=== PATIENT | female | born 1940 | race Caucasian/White ===

== ENCOUNTER 2017-12-30 15:36 | Observation (INO) ==
[2017-12-30] MEDS ORDERED: Ondansetron 4 MG/2 ML VIAL IVP ONE ×2 (15:48→18:25)
[2017-12-30] MEDS ORDERED: 0.9 % Sodium Chloride 1,000 ML IVC SCH (16:00)
[2017-12-30 16:09] LABS: Bilirubin,Urine Negative (Negative); Blood,Urine Negative (Negative); Color,Urine Yellow (Yellow); Glucose,Urine (UA) Normal (Normal); Ketones,Urine Negative (Negative); Leukocyte Esterase,Urine Negative (Negative); Nitrite,Urine Negative (Negative); Protein,Urine Negative (Neg-Trace); Urobilinogen,Urine Normal (Normal)
--- NOTE | 2017-12-30 16:18 | Emergency Department Note ---
Disposition Clinical Impression: Dizziness, Generalized weakness Nausea and vomiting Qualifiers: Vomiting type: unspecified Vomiting Intractability: non-intractable Qualified Code(s): R11.2 - Nausea with vomiting, unspecified Disposition: Admitted As Inpatient Condition: Fair Time of Disposition: 20:06 General Adult HPI - General Chief complaint: ED General Medical Stated complaint: Multiple Complaints Time Seen by Provider: 12/30/17 15:45 Source: patient, family, EMS Mode of arrival: EMS Limitations: no limitations Nursing Notes Reviewed: Yes Vital Signs Reviewed: Yes - History of Present Illness HPI Narrative: 77-year-old female with significant past medical history of hypertension presenting to the emergency Department chief complaint of dizziness and headache. Patient states approximately 2 days ago she started having a severe headache that is now dissipated. Her current symptoms are dizziness when flexing her neck. Patient denies any syncope or head injury. Denies using anticoagulation. Daughter at bedside. Daughter is concerned since patient has lost a large amount of weight recently after patient's 's . Patient denies any chest pain, shortness of breath or fever. She does disclose one episode of stool incontinence yesterday. Has not had any urinary or stool incontinence since. Denies hematuria, melena or hematochezia. Denies any history of aneurysm, coronary artery disease. Patient denies abdominal pain. Pain Scale: 3 - Related Data Home Medications Medication Instructions Recorded Confirmed LORazepam [Ativan] 0.25 mg PO BID PRN 08/11/15 09/15/15 Ondansetron HCl [Zofran] 4 mg PO TID PRN 08/11/15 09/15/15 Sertraline [Zoloft] 100 mg PO DAILY 08/11/15 09/15/15 Previous Rx's Medication Instructions Recorded OxyCODONE/APAP 5/325 [Percocet 1 each PO Q6HR PRN #30 tablet 09/15/15 5/325 MG] Allergies Allergy/AdvReac Type Severity Reaction Status Date / Time Penicillins Allergy Severe Rash Verified 09/15/15 07:08 All systems ED: reviewed and negative except as stated. Constitutional: Denies: fever, chills Eyes: Reports: as per HPI ENT ED: Reports: as per HPI Cardiovascular: Denies: chest pain, palpitations, dyspnea on exertion Respiratory: Denies: cough, dyspnea, wheezes Gastrointestinal: Denies: abdominal pain, nausea, vomiting Genitourinary: Reports: as per HPI Musculoskeletal: Reports: as per HPI Integumentary: Reports: as per HPI Neurological: Denies: weakness, numbness, paresthesias Psychiatric: Reports: as per HPI Endocrine: Reports: as per HPI Hematological/Lymphatic: Reports: as per HPI Allergic/Immunologic: Reports: as per HPI Past Medical History - Past Medical History Attestation: Yes The following information was validated with the patient. Medical history: Reports: dementia, GERD, hypertension Surgical history: Reports: hysterectomy Psychiatric history: Reports: anxiety, depression - Social History Smoking Status: Never smoker Smokeless Tobacco Status: No Alcohol use: Reports: none Drug use: Reports: none Physical Exam - General Limitations: no limitations General appearance: cachectic, other - Head Head exam: atraumatic, normocephalic, normal inspection - Eye Eye exam: Present: normal appearance. Absent: scleral icterus, conjunctival injection - ENT ENT exam: mucous membranes dry - Neck Neck exam: Present: normal inspection, full ROM. Absent: tenderness, meningismus - Chest Chest inspection: Present: normal inspection, symmetric chest wall rise. Absent : tenderness, rash - Respiratory Respiratory exam: Present: normal lung sounds bilaterally. Absent: respiratory distress, wheezes - Cardiovascular Cardiovascular exam: Present: regular rate, normal rhythm - Abdominal Exam Abdominal exam: Present: soft, Non-Tender. Absent: distention, guarding, rebound - Extremities Exam Extremities exam: Present: normal inspection. Absent: tenderness - Neurological Exam Neurological exam: Present: alert, oriented X3 - Psychiatric Psychiatric exam: Present: flat affect - Skin Skin exam: Present: warm, intact Course Course Narrative: 77-year-old female presenting to the emergency Department chief complaint of dizziness and headache. Patient is alert and oriented 3 in the room. Hypertensive but otherwise vital signs within normal limits and stable. We will obtain basic laboratory analysis along with CT of the head. We will also obtain a CTA of the head and neck. Disposition most likely admission but pending results. Patient agrees with this plan. - Reevaluation(s) Reevaluation #1: Patient's laboratory analysis benign. CTA of the head, neck along with CT of the head and CT of abdomen and pelvis within normal limits. The patient came back from CT a she felt some pressure in her chest and felt nauseous. Patient was given Benadryl and Zofran along with a liter of fluids. Due to patient's continued dizziness we will plan to admit the patient at this time for further evaluation. Daughter at bedside states she is concerned about bringing the patient home because she will soon be at home alone when her son goes back to school. I spoke to the hospitalist on-call Dr. Martinez who agrees to accept the patient at this time. Patient is alert and oriented 3 in the room with stable vital signs. Vital Signs Temperature 98.2 F 12/30/17 15:38 Pulse Rate 69 12/30/17 15:38 Respiratory Rate 16 12/30/17 15:38 Blood Pressure 187/102 12/30/17 15:38 O2 Sat by Pulse Oximetry 96 12/30/17 15:38 Temperature 98.2 F 12/30/17 15:38 Pulse Rate 74 12/30/17 19:33 Respiratory Rate 16 12/30/17 20:04 Blood Pressure 153/84 12/30/17 20:04 O2 Sat by Pulse Oximetry 94 12/30/17 19:33 Oxygen Delivery Oxygen Delivery Room Air Medical Decision Making - Lab Data Result diagrams: 12/30/17 16:02 12/30/17 16:02 Lab Results 12/30/17 12/30/17 12/30/17 Range/Units 15:42 15:51 16:02 WBC (4.3-11.1) K/mcL RBC (3.82-4.97) M/mcL Hgb (11.5-15.4) g/dL Hct (35.3-44.9) % MCV (83.0-100.0) fL MCH (28.0-33.3) pg MCHC (31.6-35.5) g/dL RDW (11.5-14.5) % Plt Count (140-400) K/mcL MPV (9.4-12.4) fL Immature Gran % (0-4) % Seg Neutrophils % % Lymphocytes % % Monocytes % % Eosinophils % % Basophils % % Neutrophils # (1.6-8.9) K/mcL Lymphocytes # (0.6-4.6) K/mcL Monocytes # (0.0-1.3) K/mcL Eosinophils # (0.0-0.6) K/mcL Basophils # (0.0-0.2) K/mcL PT 11.8 (9.4-12.1) Seconds INR 1.0 APTT 27.3 (26.0-36.0) Seconds Sodium (136-145) mEq/L Potassium (3.5-5.1) mEq/L Chloride (98-107) mEq/L Carbon Dioxide (23-29) mEq/L BUN (8-23) mg/dL Creatinine (0.60-1.20) mg/dL Est GFR ( Amer) (> 60) Est GFR (Non-Af Amer) (> 60) BUN/Creatinine Ratio (6-26) Glucose (70-105) mg/dL POC Glucose 110 H (70-99) mg/dL Calculated Osmolality (280-300) Lactic Acid (0.5-2.2) mmol/L Calcium (8.6-10.3) mg/dL Phosphorus (2.7-4.5) mg/dL Magnesium (1.6-2.6) mg/dL Total Bilirubin (0.3-1.0) mg/dL AST (13-39) Units/L ALT (7-52) Units/L Alkaline Phosphatase (34-104) Units/L Troponin I (< 0.04) ng/mL Serum Total Protein (6.4-8.9) g/dL Albumin (3.5-5.7) g/dL Globulin (2.4-3.5) g/dL Albumin/Globulin Ratio (1.1-2.2) TSH (0.340-5.600) mcIU/mL Urine Color Yellow (Yellow) Urine Clarity Clear (Clear) Urine pH 7.0 (5.0-8.0) pH Units Ur Specific [place] 1.020 (1.010-1.025) Urine Protein Negative (Neg-Trace) mg/dL Urine Glucose (UA) Normal (Normal) mg/dL Urine Ketones Negative (Negative) mg/dL Urine Blood Negative (Negative) Urine Nitrite Negative (Negative) Urine Bilirubin Negative (Negative) Urine Urobilinogen Normal (Normal) mg/dL Ur Leukocyte Esterase Negative (Negative) Ur Culture Indicated? NO (NO) 12/30/17 12/30/17 12/30/17 Range/Units 16:02 16:02 16:40 WBC 5.8 (4.3-11.1) K/mcL RBC 4.47 (3.82-4.97) M/mcL Hgb 12.9 (11.5-15.4) g/dL Hct 38.6 (35.3-44.9) % MCV 86.4 (83.0-100.0) fL MCH 28.9 (28.0-33.3) pg MCHC 33.4 (31.6-35.5) g/dL RDW 13.2 (11.5-14.5) % Plt Count 144 (140-400) K/mcL MPV 10.7 (9.4-12.4) fL Immature Gran % 0.5 (0-4) % Seg Neutrophils % 81.7 % Lymphocytes % 13.4 % Monocytes % 3.8 % Eosinophils % 0.3 % Basophils % 0.3 % Neutrophils # 4.8 (1.6-8.9) K/mcL Lymphocytes # 0.8 (0.6-4.6) K/mcL Monocytes # 0.2 (0.0-1.3) K/mcL Eosinophils # 0.0 (0.0-0.6) K/mcL Basophils # 0.0 (0.0-0.2) K/mcL PT (9.4-12.1) Seconds INR APTT (26.0-36.0) Seconds Sodium 136 (136-145) mEq/L Potassium 3.5 (3.5-5.1) mEq/L Chloride 109 H (98-107) mEq/L Carbon Dioxide 25 (23-29) mEq/L BUN 11 (8-23) mg/dL Creatinine 0.73 (0.60-1.20) mg/dL Est GFR ( Amer) > 60 (> 60) Est GFR (Non-Af Amer) > 60 (> 60) BUN/Creatinine Ratio 15 (6-26) Glucose 113 H (70-105) mg/dL POC Glucose (70-99) mg/dL Calculated Osmolality 282 (280-300) Lactic Acid 0.7 (0.5-2.2) mmol/L Calcium 9.2 (8.6-10.3) mg/dL Phosphorus 3.4 (2.7-4.5) mg/dL Magnesium 2.1 (1.6-2.6) mg/dL Total Bilirubin 0.7 (0.3-1.0) mg/dL AST 15 (13-39) Units/L ALT 7 (7-52) Units/L Alkaline Phosphatase 71 (34-104) Units/L Troponin I < 0.03 (< 0.04) ng/mL Serum Total Protein 6.6 (6.4-8.9) g/dL Albumin 4.1 (3.5-5.7) g/dL Globulin 2.5 (2.4-3.5) g/dL Albumin/Globulin Ratio 1.6 (1.1-2.2) TSH 1.295 (0.340-5.600) mcIU/mL Urine Color (Yellow) Urine Clarity (Clear) Urine pH (5.0-8.0) pH Units Ur Specific [place] (1.010-1.025) Urine Protein (Neg-Trace) mg/dL Urine Glucose (UA) (Normal) mg/dL Urine Ketones (Negative) mg/dL Urine Blood (Negative) Urine Nitrite (Negative) Urine Bilirubin (Negative) Urine Urobilinogen (Normal) mg/dL Ur Leukocyte Esterase (Negative) Ur Culture Indicated? (NO) - EKG Data EKG #1 EKG attestation: Yes I reviewed and interpreted this EKG. EKG results narrative: Sinus rhythm. 60 bpm. AK interval 177, QRS 102, QTc 43. No signs of acute ST segment elevation or ischemia. Compared to previous EKG completed on08/11/2015 with no significant changes. EKG #2 EKG attestation: Yes I reviewed and interpreted this EKG. EKG results narrative: Sinus rhythm with PVCs. 68 bpm. Left axis deviation. AK interval 177, QRS of 91, QTC 414. No signs of acute ST segment elevation or ischemia. Attestation Statement - Attestation Attestation: I, Braeden Ramirez DO, examined this patient [id number] and my medical decision-making was reviewed with (Dr. Letty Garrido, Resident Physician. I agree with the documented findings, disposition and treatment plan as described except to the extent set forth below. Please see my progress notes for details.
[2017-12-30 16:19] LABS: Clarity,Urine Clear (Clear)
--- NOTE | 2017-12-30 16:23 | Emergency Department Note ---
Disposition Clinical Impression: Nausea and vomiting, Dizziness, Generalized weakness Disposition: Admitted As Inpatient Condition: Fair Referrals: Yessi Jordan MD [Primary Care Provider] - Forms: ED Satisfaction Letter, Work/School Release Time of Disposition: 19:44 General Adult HPI - General Chief complaint: ED General Medical Stated complaint: Multiple Complaints Time Seen by Provider: 12/30/17 15:45 Source: patient, family, EMS Mode of arrival: EMS Limitations: no limitations - History of Present Illness Pain Scale: 3 - Related Data Home Medications Medication Instructions Recorded Confirmed LORazepam [Ativan] 0.25 mg PO BID PRN 08/11/15 09/15/15 Ondansetron HCl [Zofran] 4 mg PO TID PRN 08/11/15 09/15/15 Sertraline [Zoloft] 100 mg PO DAILY 08/11/15 09/15/15 Previous Rx's Medication Instructions Recorded OxyCODONE/APAP 5/325 [Percocet 1 each PO Q6HR PRN #30 tablet 09/15/15 5/325 MG] Allergies Allergy/AdvReac Type Severity Reaction Status Date / Time Penicillins Allergy Severe Rash Verified 09/15/15 07:08 Past Medical History - Past Medical History Medical history: Reports: dementia, GERD, hypertension Surgical history: Reports: hysterectomy Psychiatric history: Reports: anxiety, depression - Social History Smoking Status: Never smoker Smokeless Tobacco Status: No Alcohol use: Reports: none Drug use: Reports: none Physical Exam - General Limitations: no limitations General appearance: other Course Vital Signs Temperature 98.2 F 12/30/17 15:38 Pulse Rate 69 12/30/17 15:38 Respiratory Rate 16 12/30/17 15:38 Blood Pressure 187/102 12/30/17 15:38 O2 Sat by Pulse Oximetry 96 12/30/17 15:38 Temperature 98.2 F 12/30/17 15:38 Pulse Rate 74 12/30/17 19:33 Respiratory Rate 16 12/30/17 19:33 Blood Pressure 162/87 12/30/17 19:33 O2 Sat by Pulse Oximetry 94 12/30/17 19:33 Oxygen Delivery Oxygen Delivery Room Air Medical Decision Making - Lab Data Result diagrams: 12/30/17 16:02 12/30/17 16:02 Lab Results 12/30/17 12/30/17 12/30/17 Range/Units 15:51 16:02 16:02 WBC 5.8 (4.3-11.1) K/mcL RBC 4.47 (3.82-4.97) M/mcL Hgb 12.9 (11.5-15.4) g/dL Hct 38.6 (35.3-44.9) % MCV 86.4 (83.0-100.0) fL MCH 28.9 (28.0-33.3) pg MCHC 33.4 (31.6-35.5) g/dL RDW 13.2 (11.5-14.5) % Plt Count 144 (140-400) K/mcL MPV 10.7 (9.4-12.4) fL Immature Gran % 0.5 (0-4) % Seg Neutrophils % 81.7 % Lymphocytes % 13.4 % Monocytes % 3.8 % Eosinophils % 0.3 % Basophils % 0.3 % Neutrophils # 4.8 (1.6-8.9) K/mcL Lymphocytes # 0.8 (0.6-4.6) K/mcL Monocytes # 0.2 (0.0-1.3) K/mcL Eosinophils # 0.0 (0.0-0.6) K/mcL Basophils # 0.0 (0.0-0.2) K/mcL PT 11.8 (9.4-12.1) Seconds INR 1.0 APTT 27.3 (26.0-36.0) Seconds Sodium (136-145) mEq/L Potassium (3.5-5.1) mEq/L Chloride (98-107) mEq/L Carbon Dioxide (23-29) mEq/L BUN (8-23) mg/dL Creatinine (0.60-1.20) mg/dL Est GFR ( Amer) (> 60) Est GFR (Non-Af Amer) (> 60) BUN/Creatinine Ratio (6-26) Glucose (70-105) mg/dL Calculated Osmolality (280-300) Lactic Acid (0.5-2.2) mmol/L Calcium (8.6-10.3) mg/dL Phosphorus (2.7-4.5) mg/dL Magnesium (1.6-2.6) mg/dL Total Bilirubin (0.3-1.0) mg/dL AST (13-39) Units/L ALT (7-52) Units/L Alkaline Phosphatase (34-104) Units/L Troponin I (< 0.04) ng/mL Serum Total Protein (6.4-8.9) g/dL Albumin (3.5-5.7) g/dL Globulin (2.4-3.5) g/dL Albumin/Globulin Ratio (1.1-2.2) TSH (0.340-5.600) mcIU/mL Urine Color Yellow (Yellow) Urine Clarity Clear (Clear) Urine pH 7.0 (5.0-8.0) pH Units Ur Specific [place] 1.020 (1.010-1.025) Urine Protein Negative (Neg-Trace) mg/dL Urine Glucose (UA) Normal (Normal) mg/dL Urine Ketones Negative (Negative) mg/dL Urine Blood Negative (Negative) Urine Nitrite Negative (Negative) Urine Bilirubin Negative (Negative) Urine Urobilinogen Normal (Normal) mg/dL Ur Leukocyte Esterase Negative (Negative) Ur Culture Indicated? NO (NO) 12/30/17 12/30/17 Range/Units 16:02 16:40 WBC (4.3-11.1) K/mcL RBC (3.82-4.97) M/mcL Hgb (11.5-15.4) g/dL Hct (35.3-44.9) % MCV (83.0-100.0) fL MCH (28.0-33.3) pg MCHC (31.6-35.5) g/dL RDW (11.5-14.5) % Plt Count (140-400) K/mcL MPV (9.4-12.4) fL Immature Gran % (0-4) % Seg Neutrophils % % Lymphocytes % % Monocytes % % Eosinophils % % Basophils % % Neutrophils # (1.6-8.9) K/mcL Lymphocytes # (0.6-4.6) K/mcL Monocytes # (0.0-1.3) K/mcL Eosinophils # (0.0-0.6) K/mcL Basophils # (0.0-0.2) K/mcL PT (9.4-12.1) Seconds INR APTT (26.0-36.0) Seconds Sodium 136 (136-145) mEq/L Potassium 3.5 (3.5-5.1) mEq/L Chloride 109 H (98-107) mEq/L Carbon Dioxide 25 (23-29) mEq/L BUN 11 (8-23) mg/dL Creatinine 0.73 (0.60-1.20) mg/dL Est GFR ( Amer) > 60 (> 60) Est GFR (Non-Af Amer) > 60 (> 60) BUN/Creatinine Ratio 15 (6-26) Glucose 113 H (70-105) mg/dL Calculated Osmolality 282 (280-300) Lactic Acid 0.7 (0.5-2.2) mmol/L Calcium 9.2 (8.6-10.3) mg/dL Phosphorus 3.4 (2.7-4.5) mg/dL Magnesium 2.1 (1.6-2.6) mg/dL Total Bilirubin 0.7 (0.3-1.0) mg/dL AST 15 (13-39) Units/L ALT 7 (7-52) Units/L Alkaline Phosphatase 71 (34-104) Units/L Troponin I < 0.03 (< 0.04) ng/mL Serum Total Protein 6.6 (6.4-8.9) g/dL Albumin 4.1 (3.5-5.7) g/dL Globulin 2.5 (2.4-3.5) g/dL Albumin/Globulin Ratio 1.6 (1.1-2.2) TSH 1.295 (0.340-5.600) mcIU/mL Urine Color (Yellow) Urine Clarity (Clear) Urine pH (5.0-8.0) pH Units Ur Specific [place] (1.010-1.025) Urine Protein (Neg-Trace) mg/dL Urine Glucose (UA) (Normal) mg/dL Urine Ketones (Negative) mg/dL Urine Blood (Negative) Urine Nitrite (Negative) Urine Bilirubin (Negative) Urine Urobilinogen (Normal) mg/dL Ur Leukocyte Esterase (Negative) Ur Culture Indicated? (NO) Attestation Statement - Attestation Attestation: I, Braeden Ramirez DO, examined this patient [id number] and my medical decision-making was reviewed with Dr. Letty Garrido Resident Physician. I agree with the documented findings, disposition and treatment plan as described except to the extent set forth below. Please see my progress notes for details. 77-year-old female presents to the emergency room for evaluation of a severe headache as well as nausea and vomiting. Patient presents here to the emergency room in the care of family by EMS for these symptoms. Proximal a 48+ hours ago the patient was having a complaint of a severe headache. She does live with the family is being treated for slow onset dementia. Patient's family denies any trauma or injuries. Denies any medications or changes in medication. Denies any fevers or chills chest pain shortness of breath vision changes or diarrhea. Main complaints and issues of concern here today with a headache and the intermittent nausea and vomiting. On presentation EMS transportation without any issues. Patient's vital signs are stable. Accu- Chek was normal. Blood pressure is slightly elevated but not immediately concerning. Head is atraumatic pupils are equal round reactive extracted muscles are intact she has no lateralizing nystagmus or fatigable nystagmus on exam. She has no dizziness while she acute her head still or with lateral movement of the eyes. She does have dizziness when she flexes her head forward. She has no audible carotid bruits. Oral mucosa is patent trachea is midline. Lungs are clear to auscultation heart is regular. Abdomen is soft nontender nondistended with no guarding no rigidity and no peritoneal symptoms of this time. Extremities appear to be stable. Patient has equal and symmetrical strength in the upper and lower extremities. NIH stroke scale appears to be 0 at this time with no visible signs of facial asymmetry. Cranial nerves III through XII are grossly intact. Patient has no cerebellar function deficits at this point. She has had a history of similar issues multiple years ago that required her to have CT imaging of the head and was determined to be vertigo but this appears to be different symptoms here today. Patient will have stroke evaluation completed CT imaging the head along with electrolytes and labs EKG troponin CBC chemistry chest x-ray CT of the abdomen because of uncontrolled bowel movement yesterday as well as fluid hydration electrolytes. Patient does not meet any acute criteria for stroke evaluation at this point. She said greater than 48 hours of the symptoms. The dizziness is been present since yesterday accounting for greater than 24 hours of the dizziness. She has had no progression or change in the symptoms since then. The daughter is just concerned and brought in the emergency room for evaluation. Patient will require admission once workup is completed. See detailed documentation the physical exam, medical intervention, medical decision -making and disposition in the resident physician's note. No critical care pad the patient's treatment course at this time. 1735 Kidney function is normal this time. CT angiography of the head and neck was ordered on his while to rule out any vascular insufficiency. Plain CT of the head as well as CT the abdomen have been completed but the imaging has not been reviewed. [address] angiography of the head and neck is unremarkable this time. The CT of the head that was plain film imaging as well as CT the abdomen did not show any acute etiology. Patient has had intermittent nausea while here. The dizziness symptoms have been present when she leans her head forward. Angiography is resulted and is negative for acute dissection bleed or vascular insufficiency this time. She will be admitted for dizziness symptomatically control and continued evaluation. Patient otherwise clinically stable. Patient and negative CT angiography the hospitalist Dr. Edgar reviewed the case. Description of the patient's persistent dizziness as well as nausea and emesis causing her inability to take care of herself at home were discussed and reviewed. Admission process will be completed for evaluation determination of source to the dizziness. Patient is stable will be admitted at this time. Family informed and comfortable with the plan
[2017-12-30 16:27] LABS: Basophils % 0.3 %; Eosinophils % 0.3 %; Hematocrit 38.6 % (35.3-44.9); Hemoglobin 12.9 g/dL (11.5-15.4); Immature Granulocytes % 0.5 % (0-4); Lymphocytes # 0.8 K/mcL (0.6-4.6); Lymphocytes % 13.4 %; Mean Corpuscular HGB Conc 33.4 g/dL (31.6-35.5); Mean Corpuscular Hemoglobin 28.9 pg (28.0-33.3); Mean Corpuscular Volume 86.4 fL (83.0-100.0); Mean Platelet Volume 10.7 fL (9.4-12.4); Monocytes # 0.2 K/mcL (0.0-1.3); Monocytes % 3.8 %; Neutrophils # 4.8 K/mcL (1.6-8.9); Platelet Count 144 K/mcL (140-400); Red Blood Count 4.47 M/mcL (3.82-4.97); Red Cell Distribution Width 13.2 % (11.5-14.5); Segmented Neutrophils % 81.7 %
[2017-12-30 16:42] LABS: Prothrombin Time 11.8 Seconds (9.4-12.1)
[2017-12-30 16:44] LABS: Activated Partial Thrombo Time 27.3 Seconds (26.0-36.0)
[2017-12-30 16:57] LABS: Alanine Aminotransferase 7 Units/L (7-52); Albumin 4.1 g/dL (3.5-5.7); Albumin/Globulin Ratio 1.6 (1.1-2.2); Alkaline Phosphatase 71 Units/L (34-104); Aspartate Amino Transferase 15 Units/L (13-39); BUN/Creatinine Ratio 15 (6-26); Bilirubin,Total 0.7 mg/dL (0.3-1.0); Blood Urea Nitrogen 11 mg/dL (8-23); Calcium 9.2 mg/dL (8.6-10.3); Carbon Dioxide 25 mEq/L (23-29); Chloride 109 mEq/L (98-107); Globulin 2.5 g/dL (2.4-3.5); Glucose 113 mg/dL (70-105); Magnesium 2.1 mg/dL (1.6-2.6); Osmolality,Calculated 282 (280-300); Phosphorous 3.4 mg/dL (2.7-4.5); Potassium 3.5 mEq/L (3.5-5.1); Sodium 136 mEq/L (136-145); Total Protein 6.6 g/dL (6.4-8.9); Troponin I < 0.03 ng/mL (< 0.04); eGFR For Non-African Americans > 60 (> 60)
[2017-12-30 17:11] LABS: Thyroid Stimulating Hormone 1.295 mcIU/mL (0.340-5.600)
[2017-12-30] MEDS ORDERED: Isovue-370 500 ML INFUS..BTL IV ONE (17:49)
[2017-12-30] MEDS ORDERED: 0.9 % Sodium Chloride 1,000 ML IVC ONE (18:37)
[2017-12-30] MEDS ORDERED: Naloxone 0.4 MG/ML INJ IVP PRN (19:53)
[2017-12-30] MEDS ORDERED: Ondansetron 4 MG/2 ML VIAL IVP PRN (19:57)
[2017-12-30] MEDS ORDERED: Acetaminophen 325 MG TABLET PO PRN (20:06)
[2017-12-30] MEDS ORDERED: hydrALAZINE 25 MG TABLET PO PRN (20:53)
--- NOTE | 2017-12-30 21:01 | Internal Med History&Physical ---
Date of Encounter: 12/30/17 Time of Encounter: 20:30 Internal Medicine - H&P: HPI Chief complaint: Dizziness getting worse in the last 2 days History of present illness: Ms. Stevenson is a 77 year old female with pmh hypertension, GERD, depression, dementia presenting with complaints of dizziness of about 2 months duration getting acutely worse in the last 2 days. Patient notes that she has been feeling progressively weaker recently for approximately about 2 months; she noted she hasn't been eating or drinking well since she lost her some months ago and has been feeling depressed. In the last 2 days, she notes that any time she rises up from a seated position, she feels light headed and has to hold on to something in order not to fall. She also complains of intermittent headaches. She also complains of a loss of appetite preceding these symptoms. She has had nausea and occasional vomiting, but denies any diarrhea. She denies fevers, chills, cough, abdominal pain or any other acute symptoms. In the ER, head CT, head CTA and chest CT were negative for any acute findings. she was given IV fluids and admitted for further management Past Med Surg Social Fam HX - Past Medical History Medical history: dementia, GERD, hypertension Additional medical history: cholelithiasis Psychiatric history: anxiety, depression - Past Surgical History Surgical History: cholecystectomy, hysterectomy Additional surgical history: Hemorrhoids. total hysterectomy. hemorrhoidectomy. egd/colonoscopy - Social History Smoking Status: Never smoker Smokeless Tobacco Status: No Alcohol use: none Drug use: none - Family History Mother Living Status: Hx Family Cardiac Disorders: Yes (enlarged heart, stroke) Internal Medicine - H&P: Meds LORazepam [Ativan] 0.25 mg PO BID PRN 08/11/15 [History] Ondansetron HCl [Zofran] 4 mg PO TID PRN 08/11/15 [History] Sertraline [Zoloft] 100 mg PO DAILY 08/11/15 [History] OxyCODONE/APAP 5/325 [Percocet 5/325 MG] 1 each PO Q6HR PRN #30 tablet 09/15/15 [Rx] 3 Allergy/AdvReac Type Severity Reaction Status Date / Time Penicillins Allergy Severe Rash Verified 09/15/15 07:08 All Systems PM: A 10-system review of systems was performed and is negative for pertinent findings except as documented above in the HPI. - Constitutional Constitutional: fatigue, falls, weakness - EENT Eyes: no change in vision, no discharge, no pain, no photophobia Ears: no ear discharge, no ear pain, no tinnitus Nose, mouth and throat: no dysphagia, no nasal discharge, no neck pain, no sore throat - Cardiovascular Cardiovascular ROS IM: no chest pain, no diaphoresis, no dyspnea, no lightheadedness, no palpitations, no syncope - Respiratory Respiratory: no cough, no dyspnea, no wheezing, no excessive phlegm production - Gastrointestinal Gastrointestinal: nausea, no abdominal pain, no diarrhea, no hematemesis, no hematochezia, no melena, no vomiting - Genitourinary Genitourinary: no change in urinary stream, no dysuria, no flank pain, no hematuria - Musculoskeletal Musculoskeletal ROS IM: no numbness, no tingling - Integumentary Integumentary IM: no rash, no unusual bruising - Neurological Neurological ROS: no confusion, no convulsions, no focal weakness, no numbness, no tingling, no tremor(s) - Hematologic/Lymphatic Hematologic/Lymphatic: no easy bruising - Constitutional Vitals: Temp Pulse Resp BP Pulse Ox 98.2 F 65 14 158/83 97 12/30/17 20:50 12/30/17 20:50 12/30/17 20:50 12/30/17 20:50 12/30/17 20:50 Exam: Cachectic elderly female - Head Head exam: Present: atraumatic, normocephalic - Eye Eye exam: Present: PERRL, conjuntiva pink, sclera anicteric Pupils: Present: PERRL - Neck Neck exam general surgery: Present: supple, trachea midline. Absent: lymphadenopathy - Respiratory Respiratory exam: Present: CTAB. Absent: accessory muscle use, rales, rhonchi, wheezes - Cardiovascular Cardiovascular exam: Present: RRR, +S1, +S2. Absent: diastolic murmur, gallop, rubs, systolic murmur - GI/Abdominal GI/Abdominal exam: Present: normal bowel sounds, soft, no peritoneal signs. Absent: distended, tenderness - Extremities Exam Extremities exam: Present: warm, radial pulses palpable and symmetrical. Absent : calf tenderness, cyanotic, pedal edema - Neurological Exam Neurological exam: Present: CN II-XII intact, oriented X3, no focal deficits. Absent: pronater drift, facial droop, speech deficit - Skin Skin exam: Present: dry, intact Internal Med - H&P Results - Labs CBC & Chem 7: 12/30/17 16:02 12/30/17 16:02 - Assessment and plan (1) Dehydration Current Visit: No Status: Acute Assessment and plan: Patient has had a poor appetitie, has mild dementia and depression. Will give IV fluids, cardiac diet, boost with meals. Physical therapy consulted. CT and CTA head and neck negative for any acute findings (2) Pre-syncope Current Visit: Yes Status: Acute Assessment and plan: See #1. IV fluids (3) Generalized weakness Current Visit: Yes Status: Acute Assessment and plan: Will obtain physical therapy (4) Nausea and vomiting Current Visit: Yes Status: Acute Assessment and plan: Zofran PRN Qualifiers: Vomiting type: unspecified Vomiting Intractability: non-intractable Qualified Code(s): R11.2 - Nausea with vomiting, unspecified (5) DVT prophylaxis Current Visit: No Status: Acute Assessment and plan: Heparin sc (6) Depression Current Visit: Yes Status: Acute Assessment and plan: Continue sertraline Qualifiers: Qualified Code(s): F32.9 - Major depressive disorder, single episode, unspecified (7) Hypertension Current Visit: Yes Status: Acute Assessment and plan: Hydralazine PRN Qualifiers: Qualified Code(s): I10 - Essential (primary) hypertension - Time Spent With Patient Total time spent is greater than 50% in coordination of care (as documented) at patient's floor/unit and/or counseling patient:
[2017-12-30] MEDS: 0.9 % Sodium Chloride 1,000 ML IVC SCH (21:26)
[2017-12-31 05:18] LABS: Basophils % 0.3 %; Eosinophils # 0.1 K/mcL (0.0-0.6); Eosinophils % 2.1 %; Hematocrit 35.2 % (35.3-44.9); Hemoglobin 11.7 g/dL (11.5-15.4); Immature Granulocytes % 0.3 % (0-4); Lymphocytes # 1.8 K/mcL (0.6-4.6); Lymphocytes % 27.2 %; Mean Corpuscular HGB Conc 33.2 g/dL (31.6-35.5); Mean Corpuscular Hemoglobin 28.9 pg (28.0-33.3); Mean Corpuscular Volume 86.9 fL (83.0-100.0); Mean Platelet Volume 10.8 fL (9.4-12.4); Monocytes # 0.4 K/mcL (0.0-1.3); Monocytes % 6.1 %; Neutrophils # 4.2 K/mcL (1.6-8.9); Platelet Count 121 K/mcL (140-400); Red Blood Count 4.05 M/mcL (3.82-4.97); Red Cell Distribution Width 13.2 % (11.5-14.5)
[2017-12-31] MEDS: 0.9 % Sodium Chloride 1,000 ML IVC SCH (05:44)
[2017-12-31 05:46] LABS: BUN/Creatinine Ratio 15 (6-26); Blood Urea Nitrogen 9 mg/dL (8-23); Calcium 8.4 mg/dL (8.6-10.3); Carbon Dioxide 23 mEq/L (23-29); Chloride 110 mEq/L (98-107); Glucose 91 mg/dL (70-105); Osmolality,Calculated 286 (280-300); Phosphorous 2.8 mg/dL (2.7-4.5); Potassium 3.3 mEq/L (3.5-5.1); Sodium 139 mEq/L (136-145); eGFR For Non-African Americans > 60 (> 60)
--- NOTE | 2017-12-31 09:25 | Electrocardiograph Report ---
[place] [id number] Test Date: 2017-12-30 Pat Name: Candice Stevenson Department: 103 Room: 3B21 Gender: F [employer] Maker: : 1940 Requested By: Braeden Ramirez Order Number: [id number] Reading MD: Nasim Rubio Measurements Intervals [place] Rate: 68 P: 3 SD: 177 QRS: -15 QRSD: 102 T: 67 QT: 386 QTc: 403 Interpretive Statements SINUS RHYTHM NONSPECIFIC T-WAVE ABNORMALITY Electronically Signed On 12-31-2017 9:23:32 EDT by Nasim Rubio
--- NOTE | 2017-12-31 09:27 | Electrocardiograph Report ---
[place] [id number] Test Date: 2017-12-30 Pat Name: Candice Stevenson Department: 103 Room: 3B21 Gender: F Food Service: : 1940 Requested By: Letty Garrido Order Number: [id number] Reading MD: Nasim Rubio Measurements Intervals [place] Rate: 68 P: -1 TN: 177 QRS: -24 QRSD: 91 T: 72 QT: 397 QTc: 414 Interpretive Statements SINUS RHYTHM WITH OCCASIONAL SUPRAVENTRICULAR PREMATURE COMPLEXES BORDERLINE LEFT AXIS DEVIATION NONSPECIFIC T-WAVE ABNORMALITY Electronically Signed On 12-31-2017 9:26:24 EDT by Nasim Rubio
--- NOTE | 2017-12-31 12:07 | Discharge Summary ---
- NOTES TO OUTPATIENT PROVIDER Notes to Outpatient Provider: Recommend routine hospital follow-up Date of Encounter: 12/31/17 Time of Encounter: 12:08 - Discharge Diagnosis (1) Dehydration Priority: Primary Status: Acute (2) Nausea and vomiting Priority: Primary Status: Acute Qualifiers: Vomiting type: unspecified Vomiting Intractability: non-intractable Qualified Code(s): R11.2 - Nausea with vomiting, unspecified (3) Generalized weakness Priority: Primary Status: Acute (4) Pre-syncope Priority: Primary Status: Acute (5) Depression Priority: Primary Status: Acute Qualifiers: Qualified Code(s): F32.9 - Major depressive disorder, single episode, unspecified (6) Hypertension Priority: Primary Status: Acute Qualifiers: Qualified Code(s): I10 - Essential (primary) hypertension Hospital course: Ms. Stevenson is a 77 year old female with pmh hypertension, GERD, depression, dementia presented to [facility] on 12/30/17 with complaints of dizziness for the last 2 months getting acutely worse in the last 2 days. She was placed in observation status for further work-up and treatment. Per chart review, patient had not been eating or drinking well since she lost her a few months ago and family had noted increased depressed sx's since that time. She was found to be dehydrated and hypertensive on arrival. Regarding her hypertension she was started on hydralazine with improvement and BP; given her advanced age and multiple comorbidities hydralazine was stopped and she was started on amlodipine at discharge. Patient's daughter is an RN and is able to monitor her blood pressure at home. Patient had no recurrence of nausea or vomiting and was tolerating regular diet at discharge. She is seen and examined at bedside with daughter and son at bedside as well who both reported patient appeared to be improved and back to baseline. Orthostatic blood pressures were done that did not show any evidence of orthostatic hypotension. Patient's symptoms improved with supportive care, IV fluids and treating BP. She returned to baseline and was discharged home in stable condition with outpatient follow-up. Discharge discussed with: patient (Seen and examined at bedside. Patient is new to me, information obtained from chart review and patient report. Patient has history of dementia and is a poor historian but she is alert and oriented to self place. She is able to have a conversation and answers questions properly. Says she feels better would like to go home today.), family - Time Spent with Patient Total time spent providing and/or coordinating discharge services: - Discharge Medications Prescriptions: amLODIPine [Norvasc] 5 mg PO DAILY #30 tablet Home Medications: Sertraline [Zoloft] 100 mg PO DAILY 08/11/15 [History] amLODIPine [Norvasc] 5 mg PO DAILY #30 tablet 12/31/17 [Rx] Allergies/Adverse Reactions: 3 Allergy/AdvReac Type Severity Reaction Status Date / Time Penicillins Allergy Severe Rash Verified 09/15/15 07:08 Date of admission: 12/30/17 19:51 Primary care physician: Yessi Jordan MD Consults: 12/30/17 20:00 Consult to Physical Therapy [CONS] Routine Comment: Evaluate, develop and implement POC Reason for Consult: weakness, dizziness Does patient have active BEDREST order?: No Is patient medically & hemodynamically stable?: No Patient assessed for mobility or mobilized this visit?: No 12/30/17 20:04 Consult to Core Baker [CONS] Routine Reason for SW Consult: failure to thrive, possible placement Discharging clinician: Laney Nguyen Anticipated date of discharge: 12/31/17 - Constitutional Vitals: Temp Pulse Resp BP Pulse Ox 98.1 F 65 14 120/73 98 12/31/17 06:51 12/31/17 06:51 12/31/17 06:51 12/31/17 06:51 12/31/17 06:51 General appearance: Present: A&O X 2, pleasant, no acute distress - Head Head exam: Present: atraumatic, normocephalic - Eye Eye exam: Present: PERRL, conjuntiva pink, sclera anicteric Pupils: Present: PERRL - Neck Neck exam general surgery: Present: supple, trachea midline. Absent: lymphadenopathy - Respiratory Respiratory exam: Present: CTAB. Absent: accessory muscle use, rales, rhonchi, wheezes - Cardiovascular Cardiovascular exam: Present: RRR, +S1, +S2. Absent: diastolic murmur, gallop, rubs, systolic murmur - GI/Abdominal GI/Abdominal exam: Present: normal bowel sounds, soft, no peritoneal signs. Absent: distended, tenderness - Extremities Exam Extremities exam: Present: warm, radial pulses palpable and symmetrical. Absent : calf tenderness, cyanotic, pedal edema - Neurological Exam Neurological exam: Present: CN II-XII intact, oriented X3, no focal deficits. Absent: pronater drift, facial droop, speech deficit - Skin Skin exam: Present: dry, intact - Patient Status Disposition: Home, Self-Care Condition: Good Functional capacity at discharge: uses cane/walker Overall status at discharge: patient is back to baseline - Discharge Instructions Instructions: Dehydration (DC) Follow Up With: Yessi Jordan MD [Primary Care Provider] - 01/04/18 9:40 am - Diet and Activity Activity: increase activity as tolerated Diet: advance to your usual diet
[2017-12-31 12:11] VITALS: BP 168/88
== END 2017-12-31 13:45 | disposition home or self-care (01) ==
LOC: EMEROO 15:36 → 3BNU 15:36
PROVIDERS: ADMIT Student in an Organized Health Care Education/Training Program; ATTEND Student in an Organized Health Care Education/Training Program

== ENCOUNTER 2020-06-20 14:05 | Inpatient (IN) ==
[2020-06-20] MEDS: 0.9 % Sodium Chloride 1,000 ML IVC SCH (14:26)
[2020-06-20 15:03] LABS: Bacteria,Urine Few per hpf (None-Few); Bilirubin,Urine Negative (Negative); Blood,Urine Small (Negative); Clarity,Urine Ex.Turbid (Clear); Color,Urine Yellow (Yellow); Glucose,Urine (UA) Normal (Normal); Hyaline Casts,Urine Few per lpf (None Seen); Ketones,Urine Negative (Negative); Leukocyte Esterase,Urine Large (Negative); Mucus,Urine Few per lpf (None-Few); Nitrite,Urine Negative (Negative); PH,Urine 5.5 pH Units (5.0-8.0); Protein,Urine Trace mg/dL (Neg-Trace); Specific Gravity,Urine 1.017 (1.010-1.025); Squamous Epithelial Cell,Urine Many per hpf (None-Few); Urobilinogen,Urine Normal (Normal); WBC,Urine TNTC per hpf (0-3)
[2020-06-20 15:09] LABS: Amphetamine Screen,Urine Negative ng/mL (Cutoff=1000); Barbiturate Screen,Urine Negative ng/mL (Cutoff=200); Benzodiazepines Screen,Urine Positive ng/mL (Cutoff=200); Cannabinoid Screen,Urine Negative ng/mL (Cutoff = 50); Cocaine Screen,Urine Negative ng/mL (Cutoff= 300); Opiate Screen,Urine Negative ng/mL (Cutoff=300); Phencyclidine Screen,Urine Negative ng/mL (Cutoff=25)
[2020-06-20 15:24] LABS: Basophils % 0.2 %; Eosinophils % 0.9 %; Hematocrit 28.8 % (35.3-44.9); Hemoglobin 9.4 g/dL (11.5-15.4); Immature Granulocytes % 0.2 % (0-4); Lymphocytes # 1.3 K/mcL (0.6-4.6); Lymphocytes % 26.8 %; Mean Corpuscular HGB Conc 32.6 g/dL (31.6-35.5); Mean Corpuscular Hemoglobin 27.4 pg (28.0-33.3); Mean Platelet Volume 10.4 fL (9.4-12.4); Monocytes # 0.3 K/mcL (0.0-1.3); Monocytes % 5.8 %; Neutrophils # 3.1 K/mcL (1.6-8.9); Platelet Count 109 K/mcL (140-400); Red Blood Count 3.43 M/mcL (3.82-4.97); Red Cell Distribution Width 13.9 % (11.5-14.5); Segmented Neutrophils % 66.1 %; White Blood Count 4.7 K/mcL (4.3-11.1)
[2020-06-20 15:27] LABS: INR 1.1; Prothrombin Time 12.9 Seconds (9.4-12.1)
[2020-06-20 15:30] LABS: Activated Partial Thrombo Time 24.9 Seconds (26.0-36.0)
[2020-06-20 15:58] LABS: Alanine Aminotransferase 4 Units/L (7-52); Albumin 2.9 g/dL (3.5-5.7); Albumin/Globulin Ratio 1.5 (1.1-2.2); Alkaline Phosphatase 56 Units/L (34-104); Aspartate Amino Transferase 10 Units/L (13-39); BUN/Creatinine Ratio 16 (6-26); Bilirubin,Direct 0.1 mg/dL (0.0-0.2); Bilirubin,Indirect 0.4 mg/dL (0.0-1.0); Bilirubin,Total 0.5 mg/dL (0.3-1.0); Blood Urea Nitrogen 23 mg/dL (8-23); Calcium 7.4 mg/dL (8.6-10.3); Carbon Dioxide 25 mEq/L (23-29); Chloride 105 mEq/L (98-107); Creatine Kinase 37 Units/L (30-223); Ethanol < 10 mg/dL (Less than 10); Globulin 1.9 g/dL (2.4-3.5); Glucose 70 mg/dL (70-105); Osmolality,Calculated 290 (280-300); Potassium 2.4 mEq/L (3.5-5.1); Sodium 139 mEq/L (136-145); Total Protein 4.8 g/dL (6.4-8.9); Troponin I < 0.03 ng/mL (< 0.04); eGFR For African Americans 43 (> 60); eGFR For Non-African Americans 36 (> 60)
[2020-06-20] MEDS ORDERED: Potassium Chloride Elixir 20 MEQ/15 ML UDC PO ONE ×2 (16:16→21:00)
[2020-06-20 16:39] LABS: Adenovirus Not Detected (Not Detect); Bordetella Pertussis Not Detected (Not Detect); Chlamydophila pneumoniae Not Detected (Not Detect); Coronavirus 229E Not Detected (Not Detect); Coronavirus HKU1 Not Detected (Not Detect); Coronavirus NL63 Not Detected (Not Detect); Coronavirus OC43 Not Detected (Not Detect); Human Metapneumovirus Not Detected (Not Detect); Human Rhinovirus/Enterovirus Not Detected (Not Detect); Influenza A Subtype 2009 H1 Not Detected (Not Detect); Influenza B Not Detected (Not Detect); Mycoplasma pneumoniae Not Detected (Not Detect); Parainfluenza Virus 1 Not Detected (Not Detect); Parainfluenza Virus 2 Not Detected (Not Detect); Parainfluenza Virus 3 Not Detected (Not Detect); Parainfluenza Virus 4 Not Detected (Not Detect); Respiratory Syncytial Virus Not Detected (Not Detect); SARS-CoV-2 Not Detected (Not Detect)
[2020-06-20] MEDS ORDERED: Ondansetron 4 MG/2 ML VIAL IVP PRN (16:58)
[2020-06-20] MEDS ORDERED: Naloxone 0.4 MG/ML INJ IVP PRN (16:58)
[2020-06-20] MEDS ORDERED: Acetaminophen 325 MG TABLET PO PRN (16:58)
[2020-06-20] MEDS: *HR* Heparin 5,000 UNIT/ML VIAL SQ SCH (19:17)
[2020-06-20] MEDS: hydrOXYzine pamoate 25 MG CAPSULE PO SCH (20:18)
[2020-06-20] MEDS ORDERED: Potassium Chloride 40 MEQ, Lidocaine 1% 2 ML in 0.9 % Sodium Chloride 500 ML IVPB ONE (21:00)
[2020-06-21] MEDS ORDERED: Potassium Chloride Elixir 20 MEQ/15 ML UDC PO ONE (01:00)
[2020-06-21 04:16] LABS: Basophils % 0.5 %; Red Cell Distribution Width 14.1 % (11.5-14.5)
[2020-06-21 04:17] LABS: Eosinophils # 0.1 K/mcL (0.0-0.6); Eosinophils % 1.4 %; Hematocrit 30.9 % (35.3-44.9); Immature Granulocytes % 0.2 % (0-4); Lymphocytes # 1.2 K/mcL (0.6-4.6); Mean Corpuscular HGB Conc 32.4 g/dL (31.6-35.5); Mean Corpuscular Hemoglobin 27.9 pg (28.0-33.3); Mean Corpuscular Volume 86.1 fL (83.0-100.0); Mean Platelet Volume 10.5 fL (9.4-12.4); Monocytes # 0.3 K/mcL (0.0-1.3); Neutrophils # 2.6 K/mcL (1.6-8.9); Platelet Count 100 K/mcL (140-400); Red Blood Count 3.59 M/mcL (3.82-4.97); Segmented Neutrophils % 63.9 %; White Blood Count 4.1 K/mcL (4.3-11.1)
[2020-06-21 04:33] LABS: Albumin/Globulin Ratio 1.4 (1.1-2.2); Bilirubin,Total 0.4 mg/dL (0.3-1.0); Globulin 2.1 g/dL (2.4-3.5); Total Protein 5.1 g/dL (6.4-8.9)
[2020-06-21] MEDS: 0.9 % Sodium Chloride 1,000 ML IVC SCH ×2 (05:02→18:10)
[2020-06-21] MEDS: *HR* Heparin 5,000 UNIT/ML VIAL SQ SCH ×2 (05:03→18:11)
[2020-06-21] MEDS: cefTRIAXone 1,000 MG in Water for inj. (sterile) 10 ML IVP SCH (10:30)
[2020-06-21] MEDS: hydrOXYzine pamoate 25 MG CAPSULE PO SCH ×2 (10:30→20:21)
[2020-06-21] MEDS: amLODIPine 5 MG TABLET PO SCH (10:30)
[2020-06-21] MEDS: Mirtazapine 15 MG TABLET PO SCH (20:21)
[2020-06-22] MEDS: 0.9 % Sodium Chloride 1,000 ML IVC SCH ×2 (03:03→11:39)
[2020-06-22 03:56] LABS: Basophils % 0.7 %; Eosinophils # 0.1 K/mcL (0.0-0.6); Eosinophils % 2.1 %; Hematocrit 32.1 % (35.3-44.9); Hemoglobin 10.5 g/dL (11.5-15.4); Immature Granulocytes % 0.5 % (0-4); Lymphocytes # 1.2 K/mcL (0.6-4.6); Lymphocytes % 26.5 %; Mean Corpuscular HGB Conc 32.7 g/dL (31.6-35.5); Mean Corpuscular Hemoglobin 28.1 pg (28.0-33.3); Mean Corpuscular Volume 85.8 fL (83.0-100.0); Mean Platelet Volume 9.9 fL (9.4-12.4); Monocytes # 0.3 K/mcL (0.0-1.3); Monocytes % 5.8 %; Neutrophils # 2.8 K/mcL (1.6-8.9); Platelet Count 104 K/mcL (140-400); Red Blood Count 3.74 M/mcL (3.82-4.97); Red Cell Distribution Width 14.1 % (11.5-14.5); Segmented Neutrophils % 64.4 %; White Blood Count 4.3 K/mcL (4.3-11.1)
[2020-06-22 05:10] LABS: BUN/Creatinine Ratio 16 (6-26); Blood Urea Nitrogen 13 mg/dL (8-23); Calcium 7.8 mg/dL (8.6-10.3); Carbon Dioxide 25 mEq/L (23-29); Chloride 107 mEq/L (98-107); Glucose 91 mg/dL (70-105); Magnesium 1.3 mg/dL (1.6-2.6); Osmolality,Calculated 290 (280-300); Phosphorous 1.8 mg/dL (2.7-4.5); Sodium 140 mEq/L (136-145); eGFR For African Americans > 60 (> 60); eGFR For Non-African Americans > 60 (> 60)
[2020-06-22] MEDS: *HR* Heparin 5,000 UNIT/ML VIAL SQ SCH ×2 (05:49→17:25)
[2020-06-22] MEDS ORDERED: Potassium Phosphate 44 MEQ in 0.9 % Sodium Chloride 250 ML IVPB ONE (07:58)
[2020-06-22] MEDS: cefTRIAXone 1,000 MG in Water for inj. (sterile) 10 ML IVP SCH (09:54)
[2020-06-22] MEDS: amLODIPine 5 MG TABLET PO SCH (09:54)
[2020-06-22] MEDS: Multivit/Ca/Min/Fe/FA 1 TAB TABLET PO SCH (09:56)
[2020-06-22] MEDS: hydrOXYzine pamoate 25 MG CAPSULE PO SCH ×3 (09:56→20:07)
[2020-06-22] MEDS: Calcium Gluconate 1gm/50mL 1 GM/50 ML BAG IVPB SCH ×2 (09:57→11:49)
[2020-06-22] MEDS: Mirtazapine 15 MG TABLET PO SCH ×2 (20:00→20:08)
[2020-06-23] MEDS: 0.9 % Sodium Chloride 1,000 ML IVC SCH (03:49)
[2020-06-23] MEDS: *HR* Heparin 5,000 UNIT/ML VIAL SQ SCH (05:40)
[2020-06-23] MEDS ORDERED: levoFLOXacin 250 MG TABLET PO SCH (09:00)
[2020-06-23] MEDS: amLODIPine 5 MG TABLET PO SCH (09:18)
[2020-06-23] MEDS: hydrOXYzine pamoate 25 MG CAPSULE PO SCH (09:18)
[2020-06-23] MEDS: Multivit/Ca/Min/Fe/FA 1 TAB TABLET PO SCH ×2 (09:18→09:26)
[2020-06-23 11:03] VITALS: BP 127/83
== END 2020-06-23 11:36 | DRG 640 ==
LOC: EMEROOARM 14:05 → 3ANU 14:05 → SUATTDRO 16:48 → 3ANU 17:50 → SUATTDRO 06-21 11:35 → 2ANU 06-22 02:23
PROVIDERS: ADMIT Internal Medicine; ATTEND Internal Medicine